=== PATIENT | male | born 1980 | race Caucasian/White ===

== ENCOUNTER 2024-11-07 06:10 | Day surgery (SDC) | payer OTHER ==
[2024-11-07] MEDS ORDERED: Midazolam 1 MG/ML 2 ML SDV IV ONE (06:11)
[2024-11-07] MEDS ORDERED: Propofol 200 MG/20 ML SDV IV ONE (06:11)
[2024-11-07] MEDS ORDERED: Ketamine 500 mg/10 ML MDV IV ONE (06:11)
[2024-11-07] MEDS ORDERED: Lidocaine 2% 100 MG/5 ML Syringe IVPUSH ONE (06:11)
[2024-11-07] MEDS ORDERED: Sodium Chloride 0.9% 10 ML Syringe FLUSH PRN (06:15)
[2024-11-07] MEDS: Lactated Ringers 1,000 ML IV SCH (07:26)
== END 2024-11-07 09:12 | disposition home or self-care (01) ==
LOC: FB.SDS 06:10
PROVIDERS: ATTEND Surgery
DX: K57.31 Diverticulosis of large intestine without perforation or abscess with bleeding (principal); K42.0 Umbilical hernia with obstruction, without gangrene; E11.9 Type 2 diabetes mellitus without complications; Z79.899 Other long term (current) drug therapy
CPT/HCPCS: 00811; 82947; J2250; J2704; J3490; J7120